=== PATIENT | female | born 1985 | race Caucasian/White ===

== ENCOUNTER 2017-05-05 00:05 | Emergency (ER) | payer OTHER ==
[~2017-05-05] VITALS: Ht 162.6 cm; Wt 77.1 kg
[~2017-05-05 00:05] MED LIST: BACTRIM DS TAB1 EACH PO; CLARITIN10 MG PO; IBUPROFEN 200200 M1; NORCO 5-325 TA1 EACH; ULTRAM 50MG TAB50 MG PO
[2017-05-05] MEDS ORDERED: VALIUM5 MG PO (00:42)
[2017-05-05] MEDS ORDERED: MOBIC15 MG PO (00:42)
== END 2017-05-05 01:06 | disposition home or self-care (01) ==
LOC: ER 00:05
DX: S46.811A Strain of other muscles, fascia and tendons at shoulder and upper arm level, right arm, initial encounter (principal); F17.210 Nicotine dependence, cigarettes, uncomplicated; X50.0XXA Overexertion from strenuous movement or load, initial encounter; Y93.89 Activity, other specified; Y92.89 Other specified places as the place of occurrence of the external cause; Y99.8 Other external cause status